=== PATIENT | male | born 1975 | race Two or more races ===

== ENCOUNTER 2018-12-22 19:25 | Emergency (ER) | payer MEDICAID ==
[~2018-12-22] VITALS: Ht 182.9 cm; Wt 95.3 kg
[2018-12-22 19:29] VITALS: BP 141/82
[2018-12-22] MEDS ORDERED: KETOROLAC TROMETHAMINE INJ 30 MG/ML VIAL ONE (20:11)
[2018-12-22] MEDS: KETOROLAC TROMETHAMINE INJ 60 MG/2 ML VIAL IM ONE (20:24)
--- NOTE | 2018-12-23 01:15 | NUR ---
Patient is resting comfortably in bed with eyes closed. Easily aroused. VSS
--- NOTE | 2018-12-23 04:10 | NUR ---
Patient is resting comfortably in bed with eyes closed. Easily aroused. VSS
--- NOTE | 2018-12-23 06:26 | NUR ---
Patient is resting comfortably in bed with eyes closed. Easily aroused. VSS
--- NOTE | 2018-12-23 07:18 | NUR ---
Patient discharged to waiting room in stable condition to await outreach and education social worker. Pt was weather appropriately dressed and stated he would arrange his own transport after speaking with outreach and education social worker. Written and verbal after care instructions given. Patient verbalizes understanding of instruction.
== END 2018-12-23 07:21 | disposition home or self-care (01) ==
LOC: ER 19:28
DX: R25.2 Cramp and spasm (principal); F31.9 Bipolar disorder, unspecified; Z98.890 Other specified postprocedural states
CPT/HCPCS: 96372; 99283; J1885